=== PATIENT | female | born 1970 | race African-American/Black ===

== ENCOUNTER → 2017-09-28 | Outpatient (CLI) | payer OTHER ==
--- NOTE | 2017-10-01 07:53 | MRI ---
MRI right foot without contrast Indication: Secondary osteoarthrosis of the feet Technique: Multiplanar, multi sequence imaging of the right foot without IV contrast administration. Findings: Evaluation of the mid and hindfoot is significant limited by artifact from hardware within the calcaneus which appears to represent several screws within the posterior process of the calcaneus . There is no significant increased STIR signal within the calcaneus. There is very mild increased ST IR signal within the anterior process of the talus adjacent to the sinus tarsi without pathologic or localizing marrow signal abnormality. There is no bone marrow signal abnormality within the navicular , cuneiforms, cuboid or metatarsal bones of the foot. The distal fibula and tibia and demonstrate nor mal marrow signal. Tibiotalar articulation appears intact. No osteochondral lesion within talar dome. The Achilles tendon is normal in signal. The visualized portions of peroneus longus and brevis tendon s are intact. There appears to be moderate thickening of the distal posterior tibialis tendon with me tallic artifact noted in the approximate location of its navicular insertion likely representing scar ring at previous posterior tibialis tendon repair. Lisfranc ligament and joint alignment are normal. There is mild degenerative change of the 2nd toe MTP and PIP joint. There is moderate degenerative ch sarah of the great toe MTP joint with associated hallux valgus, metatarsus previous varus deformity. N o localizing soft tissue swelling within the foot. Sinus tarsi demonstrates mild edema suggesting spr ain; however, there is no tear of the interosseous or cervical ligaments or evidence of mass or gangl ion cyst within the sinus tarsi. No edema identified within the intrinsic muscles of the foot. The plantar fascia is not well visualiz ed secondary to artifact from calcaneal screws. Impression: 1.Limited evaluation of the right foot secondary to artifact within the mid and hindfoot likely in th e setting of prior screw placement within the posterior calcaneus. Additionally there is thickening o f the posterior tibialis tendon with metallic adjacent to its navicular insertion suggesting scarring and previous posterior tibialis tendon repair however clinical correlation is needed. 2. Moderate great toe MTP joint osteoarthrosis with hallux valgus, metatarsus previous varus deformit y. 3. Mild osteoarthrosis of the 2nd toe TMT and PIP joint. 4. 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 There is no mass identified within the sinus tarsi. Reported By:
--- NOTE | 2017-10-01 07:58 | MRI ---
MRI left foot without contrast Indication: Secondary osteoarthrosis of the feet Technique: Multiplanar, multi sequence imaging of the left foot without IV contrast administration. Findings: There is significant limitation in visualization of the mid and hindfoot secondary to metal lic artifact and calcaneus likely representing sequela of calcaneal screws. There is no localizing ma rrow edema identified within the calcaneus, talus, navicular, cuneiforms or the cuboid. Of note there is subcortical cyst formation within the anterior process of the calcaneus and cuboid along with the anterior process of the talus and dorsal navicular with hypertrophic new bone formation within the d orsal talonavicular joint consistent with moderate osteoarthrosis. There is a moderate hallux valgus, metatarsus previous varus performed with mild osteoarthrosis of the great toe MTP joint. No signific ant degenerative change identified within the TMT joints of 2nd through 5th toes. Lisfranc ligament a nd joint alignment are maintained. The Achilles tendon is is mildly thickened with intermediate signal consistent with tendinopathy. The visualized portions of the peroneus longus and brevis tendons are intact. There is thickening of the distal posterior tibialis tendon suspect represent sequela of chronic posterior tibialis tendon tear with scarring. The proximal plantar fascia is not adequately visualized secondary to artifact. There is no edema within the intrinsic flexor muscles of the feet. The sinus tarsi demonstrates no signifi cant edema. There is normal appearance of the interosseous and cervical ligaments. Tibiotalar articul ation demonstrates normal alignment without evidence of osteochondral lesion or high-grade cartilage loss. Distal fibula and tibia demonstrate normal bone marrow signal. Impression: 1.Limited evaluation of the mid and hindfoot secondary to metallic artifact presumed to be several sc rews within the posterior process of the calcaneus. 2. Moderate degenerative change of the calcaneocuboid and talonavicular joints . 3. Moderate hallux valgus, metatarsus primus varus deformity with mild osteoarthrosis of the great to e MTP joint. 4. Diffuse thickening of the posterior tibialis tendon at its navicular insertion consistent with chr onic tear and scarring. Examination is not optimized for evaluation of pes planus deformity however t here does appear to be loss of normal midfoot arch suggesting posterior tibialis tendon /spring ligam ent insufficiency. 5. Mild increased signal within the distal Achilles tendon consistent with Achilles tendinopathy. Reported By:
== END ==
LOC: RAD 09:52
PROVIDERS: ATTEND Specialist
DX: M19.271 Secondary osteoarthritis, right ankle and foot (principal); M19.272 Secondary osteoarthritis, left ankle and foot
CPT/HCPCS: 73721

== ENCOUNTER 2017-11-16 13:11 | Day surgery (SDC) | payer OTHER ==
[2017-11-16] MEDS ORDERED: MARCAINE 0.25% INJ ONE (13:38)
[2017-11-16] MEDS ORDERED: KENALOG INJ 40 MG IM ONE (13:38)
== END 2017-11-16 14:05 | disposition home or self-care (01) ==
LOC: SURG1 13:11
PROVIDERS: ATTEND Specialist
DX: M19.271 Secondary osteoarthritis, right ankle and foot (principal); M19.272 Secondary osteoarthritis, left ankle and foot; Z53.8 Procedure and treatment not carried out for other reasons
CPT/HCPCS: S0020; J3301